=== PATIENT | male | born 1965 | race Caucasian/White ===

== ENCOUNTER → 2016-07-15 | Outpatient (CLI) | payer OTHER ==
[~2016-07-15] MED LIST: AMOXICILLIN500 MG PO; ATARAX25 MG PO; BENZTROPINE MESY1 MG PO; BUSPAR PO; CLARITIN10 MG PO; CLEOCIN150 MG PO; CORTISPORIN 1%-10 M1 OT; CYMBALTA60 MG PO; DOXEPIN HCL10 MG PO; FLAGYL500 MG PO; GEODON80 MG PO; HYDROCODONE BIT1 T11 PO; LIPITOR40 MG PO; MOTRIN800 MG PO; NKHM; NORCO 325 MG-51 TAB PO; PEN-V500 MG PO; PERIDEX 480 ML480 ML PO; PREDNISONE20 MG PO; PRILOSEC20 MG PO; PRILOSEC40 M1 PO; Peridex 473 ML473 ML PO; SERTRALINE100 MG PO; TRAZODONE100 MG PO; TRIMOX500 MG PO; VISTARIL25 M2 PO; VISTARIL25 MG PO; VITAMIN D31000 IU PO; ZOLOFT50 MG PO
== END | disposition home or self-care (01) ==
LOC: RAD 14:10
DX: R07.9 Chest pain, unspecified (principal); R05 Cough

== ENCOUNTER 2016-07-20 09:30 | Emergency (ER) | payer OTHER ==
[~2016-07-20] VITALS: Ht 167.6 cm; Wt 72.6 kg
== END 2016-07-20 13:44 | disposition short-term general hospital (02) ==
LOC: ED 09:30
DX: S42.291A Other displaced fracture of upper end of right humerus, initial encounter for closed fracture (principal); F17.200 Nicotine dependence, unspecified, uncomplicated; Z88.1 Allergy status to other antibiotic agents; Z79.899 Other long term (current) drug therapy; W18.09XA Striking against other object with subsequent fall, initial encounter; Y93.01 Activity, walking, marching and hiking; Y92.89 Other specified places as the place of occurrence of the external cause; Y99.9 Unspecified external cause status

== ENCOUNTER 2016-08-07 16:20 | Emergency (ER) | payer OTHER ==
[~2016-08-07] VITALS: Ht 175.2 cm; Wt 99.8 kg
[2016-08-07] MEDS ORDERED: NEURONTIN600 MG PO (16:24)
[2016-08-09] MEDS ORDERED: VALIUM10 MG PO (11:54)
== END 2016-08-07 18:09 | disposition home or self-care (01) ==
LOC: ED 16:20
DX: T50.995A Adverse effect of other drugs, medicaments and biological substances, initial encounter (principal); Y92.9 Unspecified place or not applicable

== ENCOUNTER → 2016-08-09 | Outpatient (CLI) | payer OTHER ==
[~2016-08-09] MED LIST changes: +NEURONTIN600 MG PO; +VALIUM10 MG PO
--- NOTE | ~2016-08-09 | ST ---
[place], [place] EXERCISE STRESS TEST REPORT NAME: BRAXTON KELLER UNIT #: [id number] ROOM: DOCTOR: FLORENTINO DAVID MD BIRTHDATE: [birth year] DOS: 08/09/2016 LEXISCAN STRESS TEST REPORT INDICATIONS: Abnormal EKG. PHARMACOLOGICAL STRESS TEST: The patient was given Lexiscan 0.4 mg over 10 seconds followed by nuclear injection at 40 seconds. Test was terminated due to completion. PERFORMANCE: Baseline heart rate was 94, blood pressure 128/76, heart rate at 2 minutes was 104, blood pressure 134/84. EKG RESPONSE: Baseline rhythm is normal sinus rhythm. Stress EKG, no ST changes. CLINICAL RESPONSE: The patient was dizzy. INTERPRETATION: 1. Negative Lexiscan stress test. 2. Wait for Cardiolite images for full report. FLORENTINO DAVID MD CM:STRESS:EXERCISE STRESS TEST REPORT [id number] FLORENTINO DAVID MD
== END | disposition home or self-care (01) ==
LOC: CARD 02:55
DX: R94.31 Abnormal electrocardiogram [ECG] [EKG] (principal)

== ENCOUNTER 2016-10-08 13:39 | Emergency (ER) | payer OTHER ==
[~2016-10-08] VITALS: Ht 182.8 cm; Wt 81.6 kg
== END 2016-10-08 15:41 | disposition home or self-care (01) ==
LOC: ED 13:39
DX: M79.621 Pain in right upper arm (principal); R03.0 Elevated blood-pressure reading, without diagnosis of hypertension; Z96.611 Presence of right artificial shoulder joint; Z88.1 Allergy status to other antibiotic agents; Z79.899 Other long term (current) drug therapy

== ENCOUNTER 2017-02-28 12:39 | Emergency (ER) | payer OTHER ==
[~2017-02-28] VITALS: Ht 167.6 cm; Wt 68.0 kg
[2017-02-28] MEDS ORDERED: COGENTIN0.5 MG PO (14:49)
[2017-02-28] MEDS ORDERED: BENADRYL ALLERG25 M5 PO (14:49)
== END 2017-02-28 14:57 | disposition home or self-care (01) ==
LOC: ED 12:39
DX: G24.09 Other drug induced dystonia (principal); T43.595A Adverse effect of other antipsychotics and neuroleptics, initial encounter; F17.200 Nicotine dependence, unspecified, uncomplicated; Z88.8 Allergy status to other drugs, medicaments and biological substances; Z79.899 Other long term (current) drug therapy; Y92.89 Other specified places as the place of occurrence of the external cause

== ENCOUNTER 2017-06-14 09:51 | Emergency (ER) | payer OTHER ==
[~2017-06-14] VITALS: Ht 180.3 cm; Wt 79.4 kg
[~2017-06-14 09:51] MED LIST changes: +BENADRYL ALLERG25 M5 PO; +COGENTIN0.5 MG PO
[2017-06-14] MEDS ORDERED: AMITRIPTYLINE25 MG PO (10:21)
[2017-06-14] MEDS ORDERED: REXULTI3 MG PO (10:21)
[2017-06-14] MEDS ORDERED: CYMBALTA60 MG PO (10:22)
[2017-06-14] MEDS ORDERED: Lopressor25 MG PO (10:23)
== END 2017-06-14 11:32 | disposition home or self-care (01) ==
LOC: ED 09:51
DX: G24.09 Other drug induced dystonia (principal); F17.200 Nicotine dependence, unspecified, uncomplicated; Z88.1 Allergy status to other antibiotic agents; Z79.899 Other long term (current) drug therapy

== ENCOUNTER → 2018-03-08 | Outpatient (CLI) | payer OTHER ==
[~2018-03-08] MED LIST changes: +AMITRIPTYLINE25 MG PO; +Lopressor25 MG PO; +REXULTI3 MG PO
== END | disposition home or self-care (01) ==
LOC: LAB 11:59
DX: R53.83 Other fatigue (principal)

== ENCOUNTER → 2018-06-11 | Outpatient (CLI) | payer OTHER | END | disposition home or self-care (01) | LOC: LAB 11:37 | DX: Z96.611 Presence of right artificial shoulder joint (principal) ==

== ENCOUNTER → 2020-05-15 | Outpatient (CLI) | payer OTHER | END | disposition home or self-care (01) | LOC: COVID19 08:55 | PROVIDERS: ATTEND Internal Medicine | DX: Z20.822 Contact with and (suspected) exposure to COVID-19 (principal) ==

== ENCOUNTER → 2020-06-19 | Outpatient (CLI) | payer OTHER | END | disposition home or self-care (01) | LOC: COVID19 08:43 | PROVIDERS: ATTEND Internal Medicine | DX: Z20.822 Contact with and (suspected) exposure to COVID-19 (principal) ==

== ENCOUNTER 2020-12-05 18:35 | Emergency (ER) | payer OTHER ==
[~2020-12-05] VITALS: Wt 72.6 kg
== END 2020-12-05 22:00 | disposition admitted as inpatient to this hospital (09) ==
LOC: ED 18:35
DX: M25.512 Pain in left shoulder (principal); Z53.21 Procedure and treatment not carried out due to patient leaving prior to being seen by health care provider; W19.XXXA Unspecified fall, initial encounter; Y93.89 Activity, other specified; Y92.89 Other specified places as the place of occurrence of the external cause; Y99.8 Other external cause status

== ENCOUNTER 2020-12-06 07:24 | Emergency (ER) | payer OTHER ==
[~2020-12-06] VITALS: Wt 72.6 kg
== END 2020-12-06 08:48 | disposition home or self-care (01) ==
LOC: ED 07:24
DX: M25.512 Pain in left shoulder (principal); Z88.1 Allergy status to other antibiotic agents; Z79.899 Other long term (current) drug therapy; Z85.828 Personal history of other malignant neoplasm of skin; W18.30XA Fall on same level, unspecified, initial encounter; Y93.89 Activity, other specified; Y92.89 Other specified places as the place of occurrence of the external cause; Y99.8 Other external cause status

== ENCOUNTER → 2022-11-10 | Day surgery (SDC) | payer OTHER ==
[~2022-11-10] VITALS: Ht 167.6 cm; Wt 70.8 kg
[~2022-11-10] MED LIST changes: +CARAFATE1 G1 PO
[2022-11-10 08:15] VITALS: BP 164/98
[2022-11-10 09:55] VITALS: BP 148/84
[2022-11-10 10:09] VITALS: BP 145/85
[2022-11-10 10:17] VITALS: BP 160/79
== END ==
LOC: SDC 11-07 12:30
PROVIDERS: ATTEND Surgery
DX: D64.9 Anemia, unspecified (principal); K63.5 Polyp of colon; K21.00 Gastro-esophageal reflux disease with esophagitis, without bleeding; K57.30 Diverticulosis of large intestine without perforation or abscess without bleeding; L91.8 Other hypertrophic disorders of the skin; K29.50 Unspecified chronic gastritis without bleeding; B07.8 Other viral warts

== ENCOUNTER 2022-11-25 10:43 | Emergency (ER) | payer OTHER ==
[~2022-11-25] VITALS: Ht 167.6 cm; Wt 69.4 kg
== END 2022-11-25 12:01 | disposition home or self-care (01) ==
LOC: ED 10:43
DX: H61.23 Impacted cerumen, bilateral (principal); I10 Essential (primary) hypertension; F31.9 Bipolar disorder, unspecified; E78.00 Pure hypercholesterolemia, unspecified; Z88.6 Allergy status to analgesic agent; Z98.890 Other specified postprocedural states

== ENCOUNTER → 2022-11-25 | Outpatient (CLI) | payer OTHER ==
[2022-11-25 10:42] LABS: HEMATOCRIT 42.8 % (42.0-52.0); MEAN CORPUSCULAR HGB CONC 34.8 g/dl (33.0-37.0); MEAN PLATELET VOLUME 9.8 fl (9.6-12.3); PLATELET COUNT AUTOMATED 268 10*3/uL (130-400); RED BLOOD COUNT 4.65 10*6/uL (4.50-5.90); RED CELL DISTRI WIDTH 13.2 % (0-14.5); WHITE BLOOD COUNT 12.6 10*3/uL (4.8-10.8)
[2022-11-25 10:45] LABS: MANUAL DIFF REFLEX YES
[2022-11-25 11:08] LABS: PLATELET SUFFICIENCY NORMAL (NORMAL); TOTAL CELLS COUNTED 100 #CELLS
[2022-11-25 11:31] LABS: ALKALINE PHOSPHATASE 62 U/L (46-116); BUN 9 mg/dl (9-23); CHLORIDE 101 mmol/L (98-107); CHOLESTEROL 211 mg/dL (<200); LDL CHOLESTEROL 122 mg/dL (9-159); POTASSIUM 4.6 mmol/L (3.4-5.1); SGPT/ALT 28 U/L (10-49); TRIGLYCERIDES 198 mg/dl (<150)
== END | disposition home or self-care (01) ==
LOC: LAB 10:25
PROVIDERS: ATTEND Nurse Practitioner Family
DX: Z11.3 Encounter for screening for infections with a predominantly sexual mode of transmission (principal); K21.00 Gastro-esophageal reflux disease with esophagitis, without bleeding; Z85.828 Personal history of other malignant neoplasm of skin; R03.0 Elevated blood-pressure reading, without diagnosis of hypertension; Z80.0 Family history of malignant neoplasm of digestive organs

== ENCOUNTER → 2022-12-06 | Outpatient (CLI) | payer OTHER ==
[2022-12-06 09:27] LABS: BASO % 0.4 % (0.0-1.0); EOS # 0.4 10*3/uL (0.0-0.4); EOS % 4.2 % (1.0-4.0); HEMATOCRIT 44.4 % (42.0-52.0); LYMPH # 1.8 10*3/uL (1.3-4.4); LYMPH % 17.4 % (27.0-41.0); MEAN CELL VOLUME 92.1 fl (80.0-94.0); MEAN CORPUSCULAR HGB CONC 34.7 g/dl (33.0-37.0); MEAN PLATELET VOLUME 9.8 fl (9.6-12.3); MONO # 1.3 10*3/uL (0.1-1.0); MONO % 13.2 % (3.0-9.0); NEUT # 6.5 10*3/uL (2.3-7.9); NEUT % 63.8 % (47.0-73.0); PLATELET COUNT AUTOMATED 342 10*3/uL (130-400); RED BLOOD COUNT 4.82 10*6/uL (4.50-5.90); RED CELL DISTRI WIDTH 13.2 % (0-14.5); WHITE BLOOD COUNT 10.2 10*3/uL (4.8-10.8)
== END | disposition home or self-care (01) ==
LOC: LAB 08:39
PROVIDERS: ATTEND Nurse Practitioner Family
DX: R79.89 Other specified abnormal findings of blood chemistry (principal)

== ENCOUNTER 2022-12-11 08:51 | Emergency (ER) | payer OTHER ==
[~2022-12-11] VITALS: Ht 167.6 cm; Wt 70.3 kg
[2022-12-11] MEDS ORDERED: AVPAK AZITHROM250 M1 PO (09:24)
== END 2022-12-11 09:35 | disposition home or self-care (01) ==
LOC: ED 08:51
DX: J32.9 Chronic sinusitis, unspecified (principal); J04.0 Acute laryngitis; I10 Essential (primary) hypertension; F31.9 Bipolar disorder, unspecified; E78.00 Pure hypercholesterolemia, unspecified; Z88.6 Allergy status to analgesic agent; Z98.890 Other specified postprocedural states; F17.200 Nicotine dependence, unspecified, uncomplicated

== ENCOUNTER → 2022-12-12 | Outpatient (CLI) | payer OTHER ==
[~2022-12-12] MED LIST changes: +AVPAK AZITHROM250 M1 PO
[2022-12-12 09:49] LABS: HEMATOCRIT 45.2 % (42.0-52.0); MEAN CELL VOLUME 91.7 fl (80.0-94.0); MEAN CORPUSCULAR HGB 31.4 pg (27.0-31.0); MEAN CORPUSCULAR HGB CONC 34.3 g/dl (33.0-37.0); MEAN PLATELET VOLUME 9.5 fl (9.6-12.3); PLATELET COUNT AUTOMATED 294 10*3/uL (130-400); RED BLOOD COUNT 4.93 10*6/uL (4.50-5.90); RED CELL DISTRI WIDTH 13.4 % (0-14.5)
[2022-12-12 09:53] LABS: MANUAL DIFF REFLEX YES
[2022-12-12 10:23] LABS: TOTAL CELLS COUNTED 100 #CELLS
[2022-12-12 10:24] LABS: PLATELET SUFFICIENCY NORMAL (NORMAL)
== END | disposition home or self-care (01) ==
LOC: LAB 09:31
PROVIDERS: ATTEND Nurse Practitioner
DX: R79.89 Other specified abnormal findings of blood chemistry (principal)

== ENCOUNTER 2023-12-24 08:56 | Inpatient (IN) | payer OTHER ==
[2023-12-24] VITALS (10 sets, daily range): BP systolic 109–149; BP diastolic 63–80
[~2023-12-24] VITALS: Ht 170 cm; Wt 60.8 kg
[2023-12-24 10:23] LABS: HEMATOCRIT 39.2 % (42.0-52.0); MEAN CELL VOLUME 87.1 fl (80.0-94.0)
[2023-12-24 10:24] LABS: ACT PARTIAL THROMBO TIME 24.9 SECONDS (20.0-32.1)
[2023-12-24 10:36] LABS: ALKALINE PHOSPHATASE 71 U/L (46-116); BUN 13 mg/dl (9-23); SGPT/ALT 62 U/L (5-49); TOTAL PROTEIN 8.2 gm/dL (6.0-8.0)
[2023-12-24 10:40] LABS: ETHYL ALCOHOL < 3.0 mg/dl (<3)
[2023-12-24 10:40] LABS: BILIRUBIN Negative (Negative); BLOOD Negative (Negative); CLARITY Clear (Clear); COLOR Yellow (Yellow); GLUCOSE Negative (Negative); KETONE Trace (Negative); LEUKO ESTERASE Negative (Negative); NITRITE Negative (Negative); PH 7.5 (4.5-8.0); SPECIFIC GRAVITY <= 1.005 (1.001-1.030)
[2023-12-24 10:45] LABS: CHLORIDE 69 mmol/L (98-107); POTASSIUM 2.3 mmol/L (3.4-5.1)
[2023-12-24 10:47] LABS: URINE AMPHETAMINES Negative (1000ng/ml); URINE BARBITURATES Negative (200ng/ml); URINE BENZODIAZEPINES Negative (200ng/ml); URINE CANNABINOIDS (THC) Negative (50ng/ml); URINE COCAINE Negative (300ng/ml); URINE METHADONE Negative (300ng/ml); URINE OPIATES Negative (300ng/ml); URINE PHENCYCLIDINE Negative (25ng/ml)
[2023-12-24 10:52] LABS: MEAN CORPUSCULAR HGB 31.6 pg (27.0-31.0); MEAN CORPUSCULAR HGB CONC 36.2 g/dl (33.0-37.0); MEAN PLATELET VOLUME 10.4 fl (9.6-12.3); PLATELET COUNT AUTOMATED 221 10*3/uL (130-400); RED CELL DISTRI WIDTH 11.7 % (0-14.5); WHITE BLOOD COUNT 13.3 10*3/uL (4.8-10.8)
[2023-12-24 10:53] LABS: MANUAL DIFF REFLEX YES
[2023-12-24 10:59] LABS: EPITHELIAL CELLS 0-2
[2023-12-24 11:00] LABS: PLATELET SUFFICIENCY NORMAL (NORMAL); TOTAL CELLS COUNTED 100 #CELLS
[2023-12-24] MEDS ORDERED: POTASSIUM CHLORIDE 20 MEQ TAB PO ONE ×2 (11:00→13:25)
[2023-12-24] MEDS ORDERED: SODIUM CHLORIDE 0.9% 1,000 ML IV ONE ×2 (11:05→11:33)
[2023-12-24] MEDS ORDERED: LISINOPRIL10 M1 PO (13:11)
[2023-12-24] MEDS ORDERED: BUSPAR5 MG PO (13:12)
[2023-12-24] MEDS ORDERED: OMEPRAZOLE40 MG PO (13:14)
[2023-12-24] MEDS ORDERED: BISACODYL 5 MG TAB PO PRN (13:20)
[2023-12-24] MEDS ORDERED: ACETAMINOPHEN 325 MG TAB PO PRN (13:20)
[2023-12-24] MEDS ORDERED: SODIUM CHLORIDE 0.9% 1,000 ML IV SCH ×2 (13:25→22:40)
[2023-12-24 14:28] LABS: BUN 15 mg/dl (9-23)
[2023-12-24 14:36] LABS: POTASSIUM 3.4 mmol/L (3.4-5.1)
[2023-12-24 14:37] LABS: CHLORIDE 72 mmol/L (98-107)
[2023-12-24 18:23] LABS: BUN 15 mg/dl (9-23); POTASSIUM 2.6 mmol/L (3.4-5.1)
[2023-12-24 18:28] LABS: CHLORIDE 74 mmol/L (98-107)
[2023-12-24] MEDS ORDERED: LORazepam 1 MG TAB PO SCH (20:00)
[2023-12-24] MEDS ORDERED: POTASSIUM CHLORIDE 20 MEQ TAB PO SCH (22:10)
[2023-12-24] MEDS ORDERED: SODIUM CHLORIDE 0.9% 10 ML VIAL IV SCH (22:15)
[2023-12-24 22:33] LABS: BUN 13 mg/dl (9-23); POTASSIUM 2.6 mmol/L (3.4-5.1)
[2023-12-24 22:39] LABS: CHLORIDE 78 mmol/L (98-107)
[2023-12-25] VITALS: BP 112/65
[2023-12-25 02:21] LABS: BUN 15 mg/dl (9-23); CHLORIDE 81 mmol/L (98-107); POTASSIUM 2.6 mmol/L (3.4-5.1)
[2023-12-25] MEDS ORDERED: MULTIVITAMIN CONCENTRATE (IV) 10 ML,Thiamine 100 MG,FOLIC ACID 1 MG in SODIUM CHLORIDE ... IV ONE (02:35)
[2023-12-25] MEDS ORDERED: POTASSIUM CHLORIDE 20 MEQ TAB PO ONE ×2 (02:40→07:15)
[2023-12-25 04:00] VITALS: BP 92/52
[2023-12-25] MEDS ORDERED: diphenhydrAMINE hydrochloride 25 MG CAP PO SCH (04:00)
[2023-12-25 05:26] LABS: ALKALINE PHOSPHATASE 64 U/L (46-116); BUN 13 mg/dl (9-23); CHLORIDE 82 mmol/L (98-107); FREE T4 1.89 ng/dl (0.89-1.76); POTASSIUM 3.1 mmol/L (3.4-5.1); SGPT/ALT 58 U/L (5-49)
[2023-12-25] MEDS ORDERED: Pantoprazole Sodium 40 MG TAB PO SCH (06:00)
[2023-12-25 06:26] LABS: HEMATOCRIT 38.3 % (42.0-52.0); MEAN CELL VOLUME 89.5 fl (80.0-94.0); MEAN CORPUSCULAR HGB 32.2 pg (27.0-31.0); MEAN PLATELET VOLUME 10.9 fl (9.6-12.3); PLATELET COUNT AUTOMATED 206 10*3/uL (130-400); RED BLOOD COUNT 4.28 10*6/uL (4.50-5.90); RED CELL DISTRI WIDTH 11.9 % (0-14.5); WHITE BLOOD COUNT 12.8 10*3/uL (4.8-10.8)
[2023-12-25 06:29] LABS: MANUAL DIFF REFLEX YES
[2023-12-25 07:10] LABS: POLYCHROMASIA SLIGHT; TOTAL CELLS COUNTED 100 #CELLS
[2023-12-25 07:11] LABS: PLATELET SUFFICIENCY NORMAL (NORMAL)
[2023-12-25] MEDS ORDERED: SUCRALFATE 1 GM TAB PO SCH (07:30)
[2023-12-25 08:00] VITALS: BP 109/79
[2023-12-25] MEDS ORDERED: Phosphorus/Potassium 1.45 GM PACKET PO SCH (08:00)
[2023-12-25] MEDS ORDERED: MULTIVITAMIN CONCENTRATE (IV) 10 ML VIAL IV ONE (09:20)
[2023-12-25] MEDS ORDERED: Thiamine 200 MG/2 ML VIAL IV ONE (09:20)
[2023-12-25] MEDS ORDERED: FOLIC ACID 50 MG/10 ML VIAL IV ONE (09:20)
[2023-12-25] MEDS ORDERED: SODIUM CHLORIDE 0.9% 1,000 ML BAG IV ONE (09:20)
[2023-12-25] MEDS ORDERED: BREXPIPRAZOLE 2 MG TABLET PO SCH (10:00)
[2023-12-25] MEDS ORDERED: DIAZEPAM 2 MG TAB PO SCH (10:00)
[2023-12-25] MEDS ORDERED: Enoxaparin Sodium 40 MG/0.4 ML SYR SC SCH (10:00)
[2023-12-25] MEDS ORDERED: Thiamine 100 MG TAB PO SCH (10:00)
[2023-12-25] MEDS ORDERED: hydrOXYzine pamoate 25 MG CAP PO SCH (10:00)
[2023-12-25] MEDS ORDERED: ATORVASTATIN CALCIUM 40 MG TABLET PO SCH (10:00)
[2023-12-25] MEDS ORDERED: Vitamin D 1,000 IU TAB (25 MCG) PO SCH (10:00)
[2023-12-25] MEDS ORDERED: LISINOPRIL 10 MG TAB PO SCH (10:00)
[2023-12-25] MEDS ORDERED: GABAPENTIN 600 MG TAB PO SCH (10:00)
[2023-12-25] MEDS ORDERED: Duloxetine Hydrochloride 60 MG CAP PO SCH (10:00)
[2023-12-25] MEDS ORDERED: busPIRone Hydrochloride 5 MG TAB PO SCH (10:00)
[2023-12-25 10:44] LABS: BUN 13 mg/dl (9-23); CHLORIDE 83 mmol/L (98-107); POTASSIUM 2.9 mmol/L (3.4-5.1)
[2023-12-25 12:00] VITALS: BP 118/64
[2023-12-25] MEDS ORDERED: POTASSIUM PHOSPHATE 30 MMOL in SODIUM CHLORIDE 0.9% 500 ML IV ONE (13:45)
[2023-12-25 14:49] LABS: BUN 13 mg/dl (9-23); CHLORIDE 87 mmol/L (98-107); POTASSIUM 3.7 mmol/L (3.4-5.1)
[2023-12-25 16:00] VITALS: BP 104/57
[2023-12-25 18:49] LABS: BUN 18 mg/dl (9-23); CHLORIDE 93 mmol/L (98-107); POTASSIUM 3.9 mmol/L (3.4-5.1)
[2023-12-25 20:00] VITALS: BP 113/64
[2023-12-25] MEDS ORDERED: LORazepam 1 MG TAB PO SCH (22:00)
[2023-12-25] MEDS ORDERED: Amitriptyline Hydrochloride 25 MG TAB PO SCH (22:00)
[2023-12-25] MEDS ORDERED: Ziprasidone Hydrochloride 40 MG CAP PO SCH (22:00)
[2023-12-25 22:15] LABS: BUN 19 mg/dl (9-23); CHLORIDE 98 mmol/L (98-107); POTASSIUM 4.6 mmol/L (3.4-5.1)
[2023-12-26] VITALS: BP 133/61
[2023-12-26] MEDS ORDERED: LORazepam 1 MG TAB PO PRN
[2023-12-26 04:00] VITALS: BP 149/82
[2023-12-26 06:18] LABS: HEMATOCRIT 37.2 % (42.0-52.0); MEAN CORPUSCULAR HGB 32.3 pg (27.0-31.0); MEAN CORPUSCULAR HGB CONC 35.5 g/dl (33.0-37.0); MEAN PLATELET VOLUME 10.4 fl (9.6-12.3); PLATELET COUNT AUTOMATED 250 10*3/uL (130-400); RED BLOOD COUNT 4.09 10*6/uL (4.50-5.90); RED CELL DISTRI WIDTH 12.7 % (0-14.5); WHITE BLOOD COUNT 11.9 10*3/uL (4.8-10.8)
[2023-12-26 06:27] LABS: MANUAL DIFF REFLEX YES
[2023-12-26 06:50] LABS: BASOPHILS 1 % (0-1); TOTAL CELLS COUNTED 100 #CELLS
[2023-12-26 06:51] LABS: PLATELET SUFFICIENCY NORMAL (NORMAL)
[2023-12-26 08:00] VITALS: BP 140/83
[2023-12-26 08:02] LABS: BUN 17 mg/dl (9-23); CHLORIDE 102 mmol/L (98-107); POTASSIUM 3.8 mmol/L (3.4-5.1)
[2023-12-26] MEDS ORDERED: SODIUM CHLORIDE 0.9% 1,000 ML IV SCH (08:55)
[2023-12-26] MEDS ORDERED: POTASSIUM PHOSPHATE 30 MMOL in SODIUM CHLORIDE 0.9% 500 ML IV ONE (09:15)
[2023-12-26 12:00] VITALS: BP 134/78
== END 2023-12-26 16:06 | disposition left against medical advice (07) | DRG 426 ==
LOC: ED 08:56 → EDHOLD 12:18 → ICCU 12:18
PROVIDERS: Internal Medicine; Student in an Organized Health Care Education/Training Program; ADMIT Internal Medicine; ATTEND Internal Medicine
DX: E87.1 Hypo-osmolality and hyponatremia (principal); E87.3 Alkalosis; H05.233 Hemorrhage of bilateral orbit; E87.6 Hypokalemia; F10.129 Alcohol abuse with intoxication, unspecified; R74.01 Elevation of levels of liver transaminase levels; R73.9 Hyperglycemia, unspecified; F10.139 Alcohol abuse with withdrawal, unspecified; Y90.9 Presence of alcohol in blood, level not specified; E87.8 Other disorders of electrolyte and fluid balance, not elsewhere classified; Z53.29 Procedure and treatment not carried out because of patient's decision for other reasons; K21.9 Gastro-esophageal reflux disease without esophagitis; I10 Essential (primary) hypertension; M25.511 Pain in right shoulder; I44.7 Left bundle-branch block, unspecified; F17.210 Nicotine dependence, cigarettes, uncomplicated; G89.29 Other chronic pain; W18.39XA Other fall on same level, initial encounter; Y93.89 Activity, other specified; Y92.89 Other specified places as the place of occurrence of the external cause; Y99.8 Other external cause status; Z71.6 Tobacco abuse counseling; Z88.8 Allergy status to other drugs, medicaments and biological substances; Z79.899 Other long term (current) drug therapy